=== PATIENT | female | born 1965 | race Caucasian/White ===

== ENCOUNTER → 2019-11-27 | Outpatient (CLI) | payer OTHER ==
--- NOTE | 2019-11-27 07:40 | US ---
EXAMINATION TYPE: US abdomen complete DATE OF EXAM: 11/27/2019 COMPARISON: NONE CLINICAL HISTORY: K81.0 CHOLECYTITIS. Right flank pain x 1 month EXAM MEASUREMENTS: Liver Length: 15.8 cm Gallbladder Wall: 0.2 cm CBD: 0.5 cm Spleen: 9.3 cm Right Kidney: 11.5 x 5.2 x 4.1 cm Left Kidney: 11.9 x 6.0 x 5.6 cm Pancreas: Limited by bowel gas Liver: No pathology seen Gallbladder: No stones seen Evidence for sonographic Villareal's sign: No CBD: wnl Spleen: Partially Obscured by overlying bowel gas Right Kidney: No hydronephrosis or nephrolithiasis. Left Kidney: No hydronephrosis or nephrolithiasis. Cortical lobulation noted. Upper IVC: wnl Abd Aorta: wnl IMPRESSION: 1. No acute process.
== END ==
LOC: RADUSWWP 07:04
PROVIDERS: ATTEND Family Medicine
DX: K81.0 Acute cholecystitis (principal)
CPT/HCPCS: 76700